=== PATIENT | male | born 1985 | race Caucasian/White ===

== ENCOUNTER 2023-03-07 10:12 | Emergency (ER) | payer OTHER ==
[~2023-03-07] VITALS: Ht 182.8 cm; Wt 93.0 kg
[~2023-03-07 10:12] MED LIST: FLEXERIL10 MG PO; LISINOPRIL/HCTZ1 TA2 PO; LOMOTIL 0.025 M1 TA1 PO; NAPROSYN500 MG PO; ZOFRAN ODT4 MG SL
== END 2023-03-07 11:28 | disposition home or self-care (01) ==
LOC: ED 10:12
DX: S61.210A Laceration without foreign body of right index finger without damage to nail, initial encounter (principal); R11.0 Nausea; Z79.899 Other long term (current) drug therapy; W26.8XXA Contact with other sharp object(s), not elsewhere classified, initial encounter; Y93.89 Activity, other specified; Y92.89 Other specified places as the place of occurrence of the external cause; Y99.8 Other external cause status